=== PATIENT | male | born 1990 | race Caucasian/White ===

== ENCOUNTER 2018-09-15 22:22 | Emergency (ER) | payer OTHER, SELFPAY ==
--- NOTE | 2018-09-15 22:37 | DI.CT_ITS ---
SYMPTOM/DIAGNOSIS: PAIN WITH DEFORMITY, FELL, H/O TBI LEFT LOWER LEG CT: Multiple contiguous axial images of the left lower leg were obtained. There is significant patient motion artifact due to an extremely uncooperative patient. Sagittal and coronal reformatted images were evaluated on the Siemens workstation. There is a comminuted fracture seen of the distal fibula metaphysis. There does appear to be lateral displacement of the major distal fracture fragments. The talus and foot are externally rotated relative to the proximal tibia and fibula. There is soft tissue swelling about the lower leg and ankle. There does appear to be widening of the medial ankle joint. Vascular ligamentous injury, particularly about the ankle, should be considered. IMPRESSION: Comminuted displaced fracture of the distal fibula. External rotation of the talus and foot relative to the tibia and fibula.
[2018-09-15 22:40] VITALS: RESP 20; TEMP 37.3
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
--- NOTE | 2018-09-15 22:42 | NUR.NOTE ---
patient refuses neck collar Nursing Note:
--- NOTE | 2018-09-15 22:46 | NUR.NOTE ---
patient's friends report patient was drinking before fall. patient uncooperative with assessment Nursing Note:
--- NOTE | 2018-09-15 23:22 | NUR.NOTE ---
patient was uncooperative and refused head and neck CT, patient agreed to lower extremity CT Nursing Note:
--- NOTE | 2018-09-15 23:23 | NUR.NOTE ---
patient continues to refuse vital signs Nursing Note:
--- NOTE | 2018-09-15 23:42 | NUR.NOTE ---
patient agreed to have ice applied to ankle, patient refuses vitals at this time . awaiting ankle results Nursing Note:
--- NOTE | 2018-09-15 23:43 | NUR.NOTE ---
no nausea noted at this time, will comtimue to asses s Nursing Note:
[2018-09-16] VITALS: BP 131/73; PULSE 118; RESP 18; O2SAT 97
--- NOTE | 2018-09-16 00:01 | NUR.NOTE ---
patient cooperated with vital signs. patient reports low level painNursing Note:
--- NOTE | 2018-09-16 00:01 | NUR.NOTE ---
strong left foot pedal pulse Nursing Note:
--- NOTE | 2018-09-16 00:19 | DI.VRAD_ITS ---
EXAM: CT Left Lower Extremity Without IV Contrast, Tibia Fibula EXAM DATE/TIME: 09/15/2018 10:41 PM CLINICAL HISTORY: 28 years old, male; Pain; Ankle and lower leg; Left; Patient HX: Pain in knee and l ankle w/ deformity, altered TECHNIQUE: CT of the Left lower extremity without intravenous contrast was performed. Exam focused on the tibia and fibula. Coronal and sagittal reformatted images were created and reviewed. COMPARISON: No relevant prior studies available. FINDINGS: Limitations: Motion artifact degrades image quality. Bones/joints: There is a comminuted fracture of the distal fibular metaphysis with lateral displacement of the major distal fracture fragments. There is external rotation of the lower leg and talus and foot with respect to the proximal tibia and fibula. The possibility of ligamentous and vascular injury should also be considered. There is widening of the medial ankle mortise. Soft tissues: There is soft tissue swelling about the distal lower leg and ankle. IMPRESSION: Fibular fracture with external rotation of the lower leg, talus and foot. Ligamentous and vascular injury should also be considered. Followup as clinically warranted. Dictated and Authenticated by: Maty Carter MD. Ordering:CORY Gentile MD
[2018-09-16 00:59] LABS: Abs Immature Grans 0.05 k/cumm (0.0-0.09); Absolute Eosinophil Count 0.04 k/cumm (0.0-0.7); Basophils % 0.1; Eosinophils % 0.3; HCT 47.8 % (40.0-50.0); HGB 16.6 g/dL (13.5-17.5); Immature Grans % 0.3; Lymphocytes % 10.6; Mean Corp. HGB Concentration 34.7 g/dL (32.0-36.0); Mean Corpuscular Hemoglobin 30.8 pg (27.0-33.0); Mean Corpuscular Volume 88.7 fL (80-95); Monocytes % 2.8; Neutrophils % 85.9; Platelet Count 234 x1000/uL (130-400); RBC 5.39 m/cumm (4.50-6.00); RBC Distribution Width 12.2 % (11.8-14.1); White Blood Cell Count 14.88 k/cumm (4.4-10.8)
[2018-09-16 01:00] LABS: Absolute Basophil Count 0.01 k/cumm (0.0-0.2); Absolute Lymphocyte Count 1.58 k/cumm (1.2-3.4); Absolute Monocyte Count 0.42 k/cumm (0.11-0.7); Absolute Neutrophil Count 12.78 k/cumm (1.2-6.7)
--- NOTE | 2018-09-16 01:02 | NUR.NOTE ---
patient agreed to lab workNursing Note:
[2018-09-16 01:15] LABS: ETHANOL BLOOD 170.9 mg/dL (<3)
[2018-09-16 01:17] LABS: ALT 74 U/L (12-78); AST 23 U/L (15-37); Albumin 4.5 g/dL (3.4-5.0); Alkaline Phosphatase 104 U/L (46-116); Anion Gap 14.2 mmol/L (3-11); BUN 12 mg/dL (7-18); Bilirubin, Total 0.2 mg/dL (0.2-1.0); CO2 24.8 mmol/L (21.0-32.0); CREATININE 1.11 mg/dL (0.70-1.30); Calcium 8.7 mg/dL (8.5-10.1); Chloride 104 mmol/L (98-107); Glucose 111 mg/dL (70-100); Potassium 4.5 mmol/L (3.5-5.1); Sodium 143 mmol/L (136-145); Total Protein 8.8 g/dL (6.4-8.2)
--- NOTE | 2018-09-16 01:25 | NUR.NOTE ---
MD reduced left ankle and patient put in ortho-boot, patient has strong pedal pulse. Nursing Note:
--- NOTE | 2018-09-16 04:04 | NUR.NOTE ---
patient was sleeping and awakes to verbal stimuli. will continue to monitor Nursing Note:
--- NOTE | 2018-09-16 04:41 | NUR.NOTE ---
patient rounded on, patient's left foot strong pedal pulseNursing Note:
== END 2018-09-16 05:17 | disposition home or self-care (01) ==
PROVIDERS: Emergency Provider Student in an Organized Health Care Education/Training Program
DX: S82.832A Other fracture of upper and lower end of left fibula, initial encounter for closed fracture (principal); W01.0XXA Fall on same level from slipping, tripping and stumbling without subsequent striking against object, initial encounter; Z53.29 Procedure and treatment not carried out because of patient's decision for other reasons
CPT/HCPCS: 27786; 36415; 80053; 86850; 86900; 86901; 73700; 80320; 85025; E0114; L4361

== ENCOUNTER 2018-09-20 10:52 | Day surgery (SDC) | payer OTHER, SELFPAY ==
[2018-09-20] VITALS (7 sets, daily range): BP systolic 120–162; BP diastolic 74–87; PULSE 81–121; RESP 13–21; TEMP 36.4–36.8; O2SAT 93–96
--- NOTE | 2018-09-20 12:34 | PT.INIE ---
Date of service: 09/20/18 Time of Service: 12:00 PT Notes Inpatient Physical Therapy Evaluation Date: 09/20/18 Referring Doctor: Dr. Castellano PT Orders: PT CONSULT: Crutches and/or walker for nonweightbearing patient following ORIF of left ankle Precautions: Nonweightbearing left lower extremity Patient Profile/Admitting Diagnosis: Consult received for gait training for patient with left ankle bimalleolar fracture, awaiting surgery later this morning. Social History/Home Situation: Patient lives in [place] in a [facility] home. He has a full flight of stairs to the bathroom, which he has been managing independently by scooting up in a seated position. He states that he is able to independently get up and down from the floor without bearing weight through the left foot. He works full-time in a single level building, performing primarily desk work. He has not returned to work since his fracture, although plans to return in 5 days. Equipment Owned/DME: Axillary crutches Subjective: Patient states he has been having difficulty managing stairs since his fracture. He is nervous about performing this after surgery. He has crutches, which he fitted himself. He states that he has been watching [employer] videos on correction technique and stair management, although feels unsteady when trying to manage stairs without bearing weight through his left foot Objective: General Observation: Resting in wheelchair with left lower extremity elevated. Walking boot in place. Mental Status: A and O x3 Pain: 1/10 ROM: Right Upper Extremity: WFL Left Upper Extremity: WFL Right Lower Extremity: WFL Left Lower Extremity: Left ankle immobilized, otherwise left lower extremity range of motion WFL Strength: Right Upper Extremity: Grossly 5/5 Left Upper Extremity: Grossly 5/5 Right Lower Extremity: Patient able to perform SLR. Quads at least 3/5 bilaterally Left Lower Extremity: Patient able to perform SLR. Quads at least 3/5 bilaterally Bed Mobility/Transfers: Sit to stand: Independent Stand to sit: Independent Gait: Patient ambulates 15 feet with bilateral axillary crutches, nonweightbearing left lower extremity, with supervision only. Stairs: Patient is able to ascend and descend single step with unilateral upper extremity support to rail, contralateral upper extremity support to crutches, maintaining nonweightbearing to left lower extremity. He demonstrates good knowledge of technique and safety awareness. He performs with contact-guard only. Informed Consent/Education: Patient instructed in purpose of PT consult and plan of care. Assessment: Patient is a 28 year old male referred to physical therapy services with the diagnosis of preop gait training prior to ORIF with anticipated prolonged period of nonweightbearing to left lower extremity. Patient presents with clinical signs and symptoms consistent with diagnosis, and was seen for single session of gait training prior to surgery. Patient is assessed as Low [id number] complexity based on the following: History: Healthy 28-year-old male, referred for preop gait training prior to ORIF for left bimalleolar fracture Examination: Functional limitations include decreased activity tolerance with stair management Presentation: Stable Decision Making: Low complexity Plan of Care/Treatment Plan: Patient seen for one-time treatment only for gait training DISCHARGE RECOMMENDATIONS: Continue with use of crutches TREATMENT CODE/TIME: 12:00?1220 ([id number]) Ev Solis, PT, DPT [facility]
--- NOTE | 2018-09-20 12:44 | IN_ITS ---
Date of service: 09/20/18 Time of Service: 12:00 PT Notes Inpatient Physical Therapy Evaluation Date: 09/20/18 Referring Doctor: Dr. Castellano PT Orders: PT CONSULT: Crutches and/or walker for nonweightbearing patient following ORIF of left ankle Precautions: Nonweightbearing left lower extremity Patient Profile/Admitting Diagnosis: Consult received for gait training for patient with left ankle bimalleolar fracture, awaiting surgery later this morning. Social History/Home Situation: Patient lives in [place] in a [facility] home. He has a full flight of stairs to the bathroom, which he has been managing independently by scooting up in a seated position. He states that he is able to independently get up and down from the floor without bearing weight through the left foot. He works full-time in a single level building, performing primarily desk work. He has not returned to work since his fracture, although plans to return in 5 days. Equipment Owned/DME: Axillary crutches Subjective: Patient states he has been having difficulty managing stairs since his fracture. He is nervous about performing this after surgery. He has crutches, which he fitted himself. He states that he has been watching [employer] videos on correction technique and stair management, although feels unsteady when trying to manage stairs without bearing weight through his left foot Objective: General Observation: Resting in wheelchair with left lower extremity elevated. Walking boot in place. Mental Status: A and O x3 Pain: 1/10 ROM: Right Upper Extremity: WFL Left Upper Extremity: WFL Right Lower Extremity: WFL Left Lower Extremity: Left ankle immobilized, otherwise left lower extremity range of motion WFL Strength: Right Upper Extremity: Grossly 5/5 Left Upper Extremity: Grossly 5/5 Right Lower Extremity: Patient able to perform SLR. Quads at least 3/5 bilaterally Left Lower Extremity: Patient able to perform SLR. Quads at least 3/5 bilaterally Bed Mobility/Transfers: Sit to stand: Independent Stand to sit: Independent Gait: Patient ambulates 15 feet with bilateral axillary crutches, nonweightbearing left lower extremity, with supervision only. Stairs: Patient is able to ascend and descend single step with unilateral upper extremity support to rail, contralateral upper extremity support to crutches, maintaining nonweightbearing to left lower extremity. He demonstrates good knowledge of technique and safety awareness. He performs with contact-guard only. Informed Consent/Education: Patient instructed in purpose of PT consult and plan of care. Assessment: Patient is a 28 year old male referred to physical therapy services with the diagnosis of preop gait training prior to ORIF with anticipated prolonged period of nonweightbearing to left lower extremity. Patient presents with clinical signs and symptoms consistent with diagnosis, and was seen for single session of gait training prior to surgery. Patient is assessed as Low 53298 complexity based on the following: History: Healthy 28-year-old male, referred for preop gait training prior to ORIF for left bimalleolar fracture Examination: Functional limitations include decreased activity tolerance with stair management Presentation: Stable Decision Making: Low complexity Plan of Care/Treatment Plan: Patient seen for one-time treatment only for gait training DISCHARGE RECOMMENDATIONS: Continue with use of crutches TREATMENT CODE/TIME: 12:00?1220 (80958) Ev Solis, PT, DPT [facility]
[2018-09-20] MEDS: Lactated Ringers 1,000 ML 80 ML IV (12:48)
[2018-09-20] MEDS: Bupivacaine 0.5% Pres-Free 30 ML VIAL (13:21)
--- NOTE | 2018-09-20 13:57 | PDOC.DSDIS_ITS ---
Discharge Plan Disposition Patient Disposition: HOME Condition: Good Discharge Details Reason For Visit: (L) ANKLE FRACTURE Attending Provider: Joe Castellano Primary Care Provider: None,None Home Meds and New Rx's Prescriptions: New oxycodone 5 mg tablet 5 mg PO Q6H PRN (Reason: pain) Qty: 8 RF: 0 Continued acetaminophen 500 mg Capsule 1,000 mg PO TID RF: 0 ibuprofen 800 mg Tablet 800 mg PO TID RF: 0 Discharge Instructions Additional Instructions: Activity: You are NON WEIGHT BEARING. You should keep the leg elevated as much as possible. You may wiggle your toes and move your hip and knee. Dressings: You should keep your splint clean and dry. Do NOT get wet or dirty. If you have issues with your splint, please call and ask for Dr. Castellano. Medications: - You should take Tylenol and Ibuprofen around the clock for baseline pain. - You have been prescribed a stronger narcotic for breakthrough pain. - You should take a Baby Aspirin (81mg) twice a day for blood clot prevention. Follow-up: 2 weeks Referrals: Joe Castellano MD [ [facility] STAFF PHYSICIAN] - Equipment/Supplies: Non-Weight Bearing Crutches Activity:: Elevate Remove Dressings/Wound Care:: Do Not Remove Shower/Bathe:: Cover Diet:: As Tolerated Discharge Orders Discharge Orders: Discharge Order (Routine); Ordered 09/20/18 Ordered By: Joe Castellano DS: Diagnosis Discharge Diagnosis (1) Bimalleolar ankle fracture: Status: Acute (2) Ankle syndesmosis disruption: Status: Acute
--- NOTE | 2018-09-20 16:11 | DI.RAD_ITS ---
SYMPTOM/DIAGNOSIS: LT ANKLE FX C-ARM: Fluoroscopy Time: 44.1 seconds C-arm fluoroscopy was utilized by Dr. Castellano during open reduction and internal fixation of fracture of the distal fibula. Hard copies show plate and screw fixation of the distal fibula with reduction of the ankle mortise and apparent suture fixation of the tibiofibular joint.
[2018-09-20] MEDS: oxyCODONE 5 MG TAB PO (17:25)
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
== END 2018-09-20 18:10 | disposition home or self-care (01) ==
PROVIDERS: Visit Provider Student in an Organized Health Care Education/Training Program
PROC: (CPT 27814; principal; 2018-09-20 13:45)
DX: S82.842A Displaced bimalleolar fracture of left lower leg, initial encounter for closed fracture (principal); S93.432A Sprain of tibiofibular ligament of left ankle, initial encounter; V86.95XA Unspecified occupant of 3- or 4- wheeled all-terrain vehicle (ATV) injured in nontraffic accident, initial encounter; G89.18 Other acute postprocedural pain
CPT/HCPCS: 27814; 27829; 64447; C1713; 76942; 97161; 73600; J0690; J1100; J1885; J2250; J2405; J3010

== ENCOUNTER 2018-10-01 10:52 | Outpatient (CLI) | payer OTHER, SELFPAY ==
--- NOTE | 2018-10-01 10:45 | DI.RAD_ITS ---
SYMPTOMS/DIAGNOSIS: LT ANKLE FX F/U LEFT ANKLE: Comparison is made with intraoperative images dated . There has been no change in the hardware in the distal tibia and fibula. There has been some interval healing of the distal tibial fracture which is nondisplaced. No ankle mortise widened is seen. No new abnormalities are identified.
== END 2018-10-01 11:12 ==
PROVIDERS: Visit Provider Student in an Organized Health Care Education/Training Program
DX: S82.842D Displaced bimalleolar fracture of left lower leg, subsequent encounter for closed fracture with routine healing (principal)
CPT/HCPCS: 73610

== ENCOUNTER 2018-10-29 10:32 | Outpatient (CLI) | payer OTHER, SELFPAY ==
--- NOTE | 2018-10-29 10:23 | DI.RAD_ITS ---
SYMPTOMS/DIAGNOSIS: F/U FX LEFT ANKLE: Three views were obtained and show plate and screw fixation of the distal fibula with an apparent suture fixation across the tibiofibular joint. Alignment appears essentially unchanged in comparison with the previous examination of 10/01/18.
== END 2018-10-29 10:52 ==
PROVIDERS: Visit Provider Student in an Organized Health Care Education/Training Program
DX: S82.842D Displaced bimalleolar fracture of left lower leg, subsequent encounter for closed fracture with routine healing (principal); S93.432D Sprain of tibiofibular ligament of left ankle, subsequent encounter
CPT/HCPCS: 73610

== ENCOUNTER 2018-12-10 08:21 | Outpatient (CLI) | payer OTHER, SELFPAY ==
--- NOTE | 2018-12-10 08:17 | DI.RAD_ITS ---
SYMPTOMS/DIAGNOSIS: S/P OPEN REDUCTION AND INTERNAL FIXATION LEFT ANKLE: Comparison is made with October,. There has been no change in the alignment of the lateral malleolar fixation plate. There are minimal degenerative changes. There has been continued healing of the fracture.
== END 2018-12-10 08:41 ==
PROVIDERS: Visit Provider Physician Assistant
DX: S82.842D Displaced bimalleolar fracture of left lower leg, subsequent encounter for closed fracture with routine healing (principal)
CPT/HCPCS: 73610

== ENCOUNTER 2021-07-19 12:17 | Outpatient (REF) | payer BC, SELFPAY ==
[2021-07-19 15:34] LABS: ALT 83 U/L (16-63); AST 31 U/L (15-37); Albumin 4.6 g/dL (3.4-5.0); Alkaline Phosphatase 112 U/L (46-116); Anion Gap 11.6 mmol/L (3-11); BUN 10 mg/dL (7-18); Bilirubin, Total 0.8 mg/dL (0.2-1.0); CO2 25.4 mmol/L (21.0-32.0); CREATININE 0.9 mg/dL (0.70-1.30); Calcium 9.3 mg/dL (8.5-10.1); Calculated LDL 154 mg/dL (<100); Chloride 102 mmol/L (98-107); Cholesterol 226 mg/dL (<200); Glucose 95 mg/dL (74-106); HDL Cholesterol 47 mg/dL (40-60); Potassium 4.9 mmol/L (3.5-5.1); Sodium 139 mmol/L (136-145); Total Protein 7.8 g/dL (6.4-8.2); Triglyceride 125 mg/dL (<150)
[2021-07-20 22:02] LABS: Chlamydia Result Negative (Negative); GC Result Negative (Negative)
== END 2021-07-19 12:18 | disposition home or self-care (01) ==
LOC: NCHCN 12:17
PROVIDERS: PCP Physician Assistant Medical; Visit Provider Physician Assistant Medical
DX: Z00.00 Encounter for general adult medical examination without abnormal findings (principal); Z11.3 Encounter for screening for infections with a predominantly sexual mode of transmission; Z13.220 Encounter for screening for lipoid disorders; Z13.228 Encounter for screening for other metabolic disorders
CPT/HCPCS: 80053; 80061; 87491; 87591

== ENCOUNTER 2021-07-21 16:46 | Outpatient (REF) | payer BC, SELFPAY ==
[2021-07-23 10:27] LABS: HIV-1/2 Ag & Ab Screen Negative (Negative)
[2021-07-23 10:50] LABS: Hepatitis C Ab w Rflx HCV PCR Negative (Negative)
[2021-07-23 10:57] LABS: Syphilis Serology (RPR) Negative (Negative)
== END 2021-07-21 16:47 | disposition home or self-care (01) ==
LOC: NCHCN 16:46
PROVIDERS: Visit Provider Physician Assistant Medical
DX: Z11.3 Encounter for screening for infections with a predominantly sexual mode of transmission (principal); Z11.4 Encounter for screening for human immunodeficiency virus [HIV]; Z11.59 Encounter for screening for other viral diseases
CPT/HCPCS: 86803; 87389; 86592

== ENCOUNTER 2021-08-20 01:25 | Outpatient (CLI) | payer BC, SELFPAY | END 2021-08-20 01:26 | disposition home or self-care (01) | LOC: DS 01:26 | PROVIDERS: Visit Provider Dietitian, Registered ==

== ENCOUNTER 2021-09-02 03:30 | Outpatient (CLI) | payer BC, SELFPAY ==
--- NOTE | 2021-09-02 09:00 | NS.NUTBLAN_ITS ---
Beto was referred for medical nutrition therapy for weight management and lipid lowering meal plan. 70 inches, 276 lbs, BMI 39. Has gained 50 lbs in last 5 years. His goal is to lose 25 lbs in next 3 months. [place] body weight 180-190 lbs. Was 190 lbs 10 years ago. Labs: 07/19/21: chol: 224, LDL: 154, HDL: 47 Exercise: outdoor sports 5 hours per week- snow shoeing, skiing Diet Recall: Homefries, sandwich, salad and chicken tacos, Snacks: trailmix, chips, granola bar Session today focused on how on how to follow a lower carb diet for optimal weight loss/lipid lowering. Reviewed meal plans and good choices at restaurants. Encouraged 5-7 hours of exercise per week. Recommended using ty on phone to track carb and protein intake. Beto did not want to make follow up appt. Will be available prn.
== END 2021-09-02 03:31 | disposition home or self-care (01) ==
PROVIDERS: PCP Physician Assistant Medical; Visit Provider Dietitian, Registered
DX: E78.5 Hyperlipidemia, unspecified (principal); E66.3 Overweight; Z71.3 Dietary counseling and surveillance
CPT/HCPCS: 97802

== ENCOUNTER 2022-01-24 16:31 | Outpatient (REF) | payer BC, SELFPAY ==
[2022-01-24 18:55] LABS: HCT 44.9 % (40.0-50.0); HGB 15.8 g/dL (13.5-17.5); MCHC 35.2 % (32.0-36.0); MCV 88 fL (80-95); MPV 11.6 fL (8.0-11.0); Platelet Count 189 10^3/uL (130-400); RBC 5.09 10^6/uL (4.36-5.78); RDW 11.8 % (11.8-14.1); RDW-SD 37.8 fL; WBC 8.47 10^3/uL (4.4-10.8)
[2022-01-24 19:28] LABS: Hemoglobin A1C 4.8 % (<5.7)
[2022-01-24 19:40] LABS: ALT 62 U/L (16-63); AST 21 U/L (15-37); Albumin 4.1 g/dL (3.4-5.0); Alkaline Phosphatase 96 U/L (46-116); Bilirubin, Direct 0.1 mg/dL (0.0-0.2); Bilirubin, Total 0.4 mg/dL (0.2-1.0); Total Protein 7.7 g/dL (6.4-8.2)
== END 2022-01-24 16:32 | disposition home or self-care (01) ==
LOC: NCHCN 16:31
PROVIDERS: PCP Physician Assistant Medical; Visit Provider Physician Assistant Medical
DX: R79.89 Other specified abnormal findings of blood chemistry (principal); E66.9 Obesity, unspecified
CPT/HCPCS: 80076; 85027; 83036

== ENCOUNTER 2022-08-25 15:49 | Outpatient (REF) | payer BC, SELFPAY ==
[2022-08-25 18:46] LABS: HCT 46.6 % (40.0-50.0); HGB 16.1 g/dL (13.5-17.5); MCH 30.2 pg (27.0-33.0); MCHC 34.5 % (32.0-36.0); MCV 87 fL (80-95); MPV 11.8 fL (8.0-11.0); Platelet Count 201 10^3/uL (130-400); RBC 5.33 10^6/uL (4.36-5.78); RDW 11.9 % (11.8-14.1); RDW-SD 37.7 fL; WBC 8.05 10^3/uL (4.4-10.8)
[2022-08-25 19:02] LABS: ALT 93 U/L (16-63); AST 40 U/L (15-37); Albumin 4.5 g/dL (3.4-5.0); Alkaline Phosphatase 106 U/L (46-116); Bilirubin, Direct 0.1 mg/dL (0.0-0.2); Bilirubin, Total 0.5 mg/dL (0.2-1.0); Hemoglobin A1C 4.9 % (<5.7); Total Protein 8.4 g/dL (6.4-8.2)
== END 2022-08-25 15:50 | disposition home or self-care (01) ==
LOC: NCHCN 15:49
PROVIDERS: PCP Physician Assistant Medical; Visit Provider Physician Assistant Medical
DX: R79.89 Other specified abnormal findings of blood chemistry (principal); E66.8 Other obesity
CPT/HCPCS: 80076; 85027; 83036